=== PATIENT | female | born 2000 | race Caucasian/White ===

== ENCOUNTER 2018-12-29 21:27 | Inpatient (IN) ==
[2018-12-29] MEDS ORDERED: SODIUM CHLORIDE 0.9% 500 ML IV STA (21:58)
[2018-12-29] MEDS ORDERED: ONDANSETRON 4 MG/2 ML VIAL IV STA (21:58)
[2018-12-29 23:14] LABS: Basophils % 0.1 % (0.0-0.8); Eosinophils % 0.1 % (0.00-10.9); Hematocrit 35.9 VOL% (35.7-47.0); Immature Granulocytes % 0.4 %; Immature Granulocytes Absolute 0.04 #; Lymphocytes # 0.9 10*3/uL (1.4-4.0); Lymphocytes % 8.5 % (21.3-54.2); Mean Corpuscular HGB Conc 33.4 GM/DL (32-36); Mean Corpuscular Volume 88.9 FL (87-102); Mean Platelet Volume 11.1 FL (9.6-12.0); Monocytes % 3.4 % (1.7-12.7); Neutrophils % 87.5 % (38.7-73.9); Platelet Count 190 T/CUMM (130-400); Red Blood Count 4.04 MC/CUMM (3.8-5.5); Red Cell Distribution Width 12.7 % (9.3-17.3); White Blood Count 10.6 T/CUMM (4-12)
[2018-12-29] MEDS ORDERED: MEPERIDINE 25 MG/1 ML VIAL IV STA (23:19)
[2018-12-29 23:54] LABS: Albumin 3.6 G/DL (3.4-5.0); Bilirubin,Total 0.6 MG/DL (0.2-1.0); Calcium 9.1 MG/DL (8.5-10.1); Osmolality,Calculated 270.8 MOS/KG (273-304)
[2018-12-30 00:37] LABS: Barbiturates Screen,Urine Negative (Negative); Benzodiazepines Screen,Urine Negative (Negative); Cannabinoid Screen,Urine Positive (Negative); Opiate Screen,Urine Negative (Negative); Phencyclidine Screen,Urine Negative (Negative)
[2018-12-30 00:48] LABS: Apearance,Urine CLOUDY (Clear); Bacteria,Urine Many /HPF (Few); Bilirubin,Urine Negative (Negative); Blood, Urine Negative (Negative); Glucose,Urine (UA) Negative (Negative); Ketones,Urine Negative (Negative); Mucus,Urine Many /LPF (Occasional); Nitrite,Urine Positive (Negative); Protein,Urine 30 MG/DL; RBC,Urine 1 /HPF (0-4); Squamous Epithelial Cell,Urine Occasional /HPF (0-10); Urine Color Amber (Yellow); Urine Specific Gravity 1.027 (1.001-1.035); Urine Urobilinogen < 2.0 EU/DL (0.2-1.0); WBC,Urine 2 /HPF (0-6)
[2018-12-30] MEDS ORDERED: SODIUM CHLORIDE 0.9% 1,000 ML IV SCH (02:38)
[2018-12-30] MEDS ORDERED: ACETAMINOPHEN 325 MG TABLET PO PRN (02:38)
[2018-12-30] MEDS ORDERED: ONDANSETRON 4 MG/2 ML VIAL IV PRN (02:38)
[2018-12-30] MEDS ORDERED: SODIUM CHLORIDE 0.9% 100 ML IV ONE (02:52)
[2018-12-30] MEDS ORDERED: PIPERACILLIN/TAZOBACTAM 3,375 MG VIAL IV ONE (02:52)
[2018-12-30] MEDS: PIPERACILLIN/TAZOBACTAM 3,375 MG in SODIUM CHLORIDE 0.9% 100 ML IV SCH ×3 (03:30→18:02)
[2018-12-30] MEDS: LACTATED RINGERS 1,000 ML IV SCH ×3 (03:30→18:03)
[2018-12-30] MEDS: MEPERIDINE 25 MG/1 ML VIAL IV PRN ×5 (03:37→21:54)
[2018-12-30] MEDS: ONDANSETRON 4 MG/2 ML VIAL IV PRN ×5 (03:38→21:47)
[2018-12-30 05:20] LABS: Basophils % 0.1 % (0.0-0.8); Eosinophils % 0.1 % (0.00-10.9); Hematocrit 33.1 VOL% (35.7-47.0); Immature Granulocytes % 0.4 %; Immature Granulocytes Absolute 0.03 #; Lymphocytes # 1.2 10*3/uL (1.4-4.0); Lymphocytes % 15.4 % (21.3-54.2); Mean Corpuscular HGB Conc 33.2 GM/DL (32-36); Mean Corpuscular Volume 90.2 FL (87-102); Mean Platelet Volume 11.2 FL (9.6-12.0); Monocytes % 4.7 % (1.7-12.7); Neutrophils % 79.3 % (38.7-73.9); Platelet Count 156 T/CUMM (130-400); Red Blood Count 3.67 MC/CUMM (3.8-5.5); Red Cell Distribution Width 12.6 % (9.3-17.3); White Blood Count 7.9 T/CUMM (4-12)
[2018-12-30 05:48] LABS: Albumin 2.9 G/DL (3.4-5.0); Bilirubin,Total 0.6 MG/DL (0.2-1.0); Calcium 8.4 MG/DL (8.5-10.1); Osmolality,Calculated 270.8 MOS/KG (273-304); Total Protein 6.2 G/DL (6.4-8.3)
[2018-12-31] MEDS: ONDANSETRON 4 MG/2 ML VIAL IV PRN ×2 (01:52→11:49)
[2018-12-31] MEDS: MEPERIDINE 25 MG/1 ML VIAL IV PRN ×4 (01:57→14:16)
[2018-12-31] MEDS: LACTATED RINGERS 1,000 ML IV SCH ×2 (02:06→11:08)
[2018-12-31] MEDS: PIPERACILLIN/TAZOBACTAM 3,375 MG in SODIUM CHLORIDE 0.9% 100 ML IV SCH ×2 (03:00→11:09)
[2018-12-31 06:06] LABS: Basophils % 0.2 % (0.0-0.8); Eosinophils # 0.1 10*3/uL (0.0-0.87); Eosinophils % 1.1 % (0.00-10.9); Hematocrit 31.6 VOL% (35.7-47.0); Hemoglobin 10.3 GM/DL (12.0-16.0); Immature Granulocytes % 0.4 %; Immature Granulocytes Absolute 0.02 #; Lymphocytes # 1.9 10*3/uL (1.4-4.0); Lymphocytes % 33.2 % (21.3-54.2); Mean Corpuscular HGB Conc 32.6 GM/DL (32-36); Mean Corpuscular Volume 90.5 FL (87-102); Mean Platelet Volume 10.7 FL (9.6-12.0); Neutrophils % 56.1 % (38.7-73.9); Platelet Count 162 T/CUMM (130-400); Red Blood Count 3.49 MC/CUMM (3.8-5.5); Red Cell Distribution Width 12.9 % (9.3-17.3); White Blood Count 5.6 T/CUMM (4-12)
[2018-12-31] MEDS ORDERED: BUPIVACAINE MPF 0.25% /EPI 30 ML VIAL ONE (09:15)
[2018-12-31] MEDS ORDERED: TISSUE ADHESIVE 1 EACH APPLICATOR TOP ONE (09:15)
[2018-12-31] MEDS ORDERED: LIDOCAINE 1%/EPI INJ 20 ML VIAL ONE (09:16)
[2018-12-31] MEDS ORDERED: MEPERIDINE 25 MG/1 ML VIAL ONE (10:27)
[2018-12-31] MEDS ORDERED: PROPOFOL 200 MG/20 ML VIAL IV ONE (10:28)
[2018-12-31] MEDS ORDERED: PHENYLEPHRINE 1 MG/10 ML SYRINGE IV ONE (10:29)
[2018-12-31] MEDS ORDERED: ACETAMINOPHEN 1,000 MG/100 ML VIAL IV ONE (10:29)
[2018-12-31] MEDS ORDERED: SUCCINYLCHOLINE 200 MG/10 ML VIAL ONE (10:29)
[2018-12-31] MEDS ORDERED: SEVOFLURANE 1 UNIT/15 MINUTE INH ONE (10:29)
[2018-12-31] MEDS ORDERED: ONDANSETRON 4 MG/2 ML VIAL ONE (10:29)
[2018-12-31] MEDS ORDERED: fentaNYL 100 MCG/2 ML VIAL ONE (10:29)
[2018-12-31] MEDS ORDERED: ROCURONIUM 100 MG/10 ML VIAL IV ONE (10:29)
[2018-12-31 15:28] VITALS: BP 127/65
== END 2018-12-31 16:10 | disposition home or self-care (01) | DRG 819 ==
LOC: N.ED 21:27 → N.EDINP 12-30 00:09 → N.OB 12-30 01:50
PROVIDERS: ADMIT Obstetrics & Gynecology; ATTEND Obstetrics & Gynecology
PROC: LAPCHOL (2018-12-31 09:12)

== ENCOUNTER 2021-04-02 07:02 | Inpatient (IN) ==
[2021-04-02] MEDS ORDERED: LACTATED RINGERS 1,000 ML IV SCH ×2 (08:00→14:00)
[2021-04-02] MEDS ORDERED: OXYTOCIN/LR 20 UNIT/1,000 ML BAG IV SCH (08:00)
[2021-04-02 08:07] LABS: Basophils % 0.2 % (0.0-0.8); Eosinophils # 0.1 10*3/uL (0.0-0.87); Hematocrit 32.5 VOL% (35.7-47.0); Hemoglobin 10.6 GM/DL (12.0-16.0); Immature Granulocytes % 0.4 %; Immature Granulocytes Absolute 0.04 #; Lymphocytes # 2.6 10*3/uL (1.4-4.0); Lymphocytes % 24.7 % (21.3-54.2); Mean Corpuscular HGB Conc 32.6 GM/DL (32-36); Mean Corpuscular Volume 89.8 FL (87-102); Mean Platelet Volume 11.3 FL (9.6-12.0); Monocytes % 5.4 % (1.7-12.7); Neutrophils % 68.3 % (38.7-73.9); Platelet Count 199 T/CUMM (130-400); Red Blood Count 3.62 MC/CUMM (3.8-5.5); White Blood Count 10.4 T/CUMM (4-12)
[2021-04-02] MEDS ORDERED: AMPICILLIN INJ 2,000 MG in SODIUM CHLORIDE 0.9% 100 ML IV ONE (08:13)
[2021-04-02 08:21] LABS: INR 0.9; PT Patient Result 10.1 SECS (10.5-12.0); Partial Thromboplastin Time 24.4 SECS (23.9-33.8)
[2021-04-02 08:25] LABS: Alanine Aminotransferase 12 U/L (13-56); Albumin 2.8 G/DL (3.4-5.0); Alkaline Phosphatase 105 U/L (45-117); Aspartate Amino Transferase 11 U/L (0-37); Bilirubin,Direct < 0.050 MG/DL (0.0-0.20); Bilirubin,Total < 0.39 MG/DL (0.20-1.00); Blood Urea Nitrogen 6 MG/DL (7-18); Calcium 8.6 MG/DL (8.5-10.1); Carbon Dioxide 24 MMOL/L (21-32); Estimated Glom Filtration Rate 169 ML/MIN; Glucose 93 MG/DL (74-106); Osmolality,Calculated 267.1 MOS/KG (273-304); Potassium 3.3 MMOL/L (3.5-5.1); Sodium 135 MMOL/L (136-145); Total Protein 6.8 G/DL (6.4-8.2); Uric Acid 4.3 MG/DL (2.6-6.0)
[2021-04-02 08:27] LABS: Hypochromasia 1+; Lymphocytes 24 % (20-55); Microcytosis 1+; Platelet Estimate Adequate; Segmented Neutrophils 71 % (50-85); Total Cells Counted 100
[2021-04-02 08:37] LABS: Bilirubin,Urine Negative (Negative); Blood, Urine Negative (Negative); Glucose,Urine (UA) Negative (Negative); Ketones,Urine Negative (Negative); Mucus,Urine Occasional /LPF (Occasional); Nitrite,Urine Positive (Negative); Protein,Urine Negative; RBC,Urine 3 /HPF (0-4); Squamous Epithelial Cell,Urine Few /HPF (0-10); Urine Appearance Slightly Hazy (Clear); Urine Color Yellow (Yellow); Urine Specific Gravity 1.013 (1.001-1.035); Urine Urobilinogen < 2.0 EU/DL (0.2-1.0)
[2021-04-02 08:45] LABS: Protein/Creatinine Ratio,Urine 0.1 RATIO
[2021-04-02] MEDS: AMPICILLIN INJ 1,000 MG in SODIUM CHLORIDE 0.9% 100 ML IV SCH ×3 (12:27→20:42)
[2021-04-02] MEDS ORDERED: ePHEDrine 50 MG/ML VIAL IV PRN (13:32)
[2021-04-02] MEDS ORDERED: FAMOTIDINE 20 MG/2 ML VIAL IV ONE (13:32)
[2021-04-02] MEDS ORDERED: CITRIC ACID/SODIUM CITRATE 30 ML UDCUP PO ONE (13:32)
[2021-04-02] MEDS ORDERED: LACTATED RINGERS 1,000 ML IV ONE (13:32)
[2021-04-02] MEDS ORDERED: diphenhydrAMINE 50 MG/1 ML VIAL IV PRN ×2 (13:36)
[2021-04-02] MEDS ORDERED: NALOXONE 0.4 MG/ML VIAL IV PRN (13:36)
[2021-04-02] MEDS ORDERED: PROMETHAZINE 25 MG/1 ML VIAL IM ONE (13:36)
[2021-04-02] MEDS ORDERED: hydrOXYzine HCL 25 MG/1 ML VIAL IM PRN (13:36)
[2021-04-02] MEDS: fentaNYL 2 MCG/ROPIV 0.2% EPID 100 ML EPIDURAL SCH ×2 (14:12→22:11)
[2021-04-02 15:30] LABS: Bilirubin,Urine Negative (Negative); Blood, Urine Negative (Negative); Glucose,Urine (UA) Negative (Negative); Ketones,Urine 20 mg/dL (Negative); Mucus,Urine Occasional /LPF (Occasional); Nitrite,Urine Negative (Negative); Protein,Urine Negative; RBC,Urine <1 /HPF (0-4); Squamous Epithelial Cell,Urine Occasional /HPF (0-10); Urine Appearance CLEAR (Clear); Urine Color Yellow (Yellow); Urine Specific Gravity 1.025 (1.001-1.035); Urine Urobilinogen < 2.0 EU/DL (0.2-1.0)
[2021-04-02] MEDS: ONDANSETRON 4 MG/2 ML VIAL IV PRN ×2 (17:33→23:37)
[2021-04-02] MEDS ORDERED: miSOPROStoL 200 MCG TABLET ONE (22:41)
[2021-04-02] MEDS ORDERED: OXYTOCIN/LR 20 UNIT/1,000 ML BAG IV ONE (22:41)
[2021-04-02] MEDS ORDERED: TRANEXAMIC ACID 1,000 MG/10 ML VIAL ONE (22:41)
[2021-04-02] MEDS ORDERED: METHYLERGONOVINE 0.2 MG/1 ML AMP ONE (22:41)
[2021-04-02] MEDS ORDERED: CARBOPROST TROMETHAMINE 250 MCG/ML AMP IM ONE (22:42)
[2021-04-02] MEDS ORDERED: SODIUM CHLORIDE 0.9% 0 ML IV ONE (22:42)
[2021-04-03] MEDS: AMPICILLIN INJ 1,000 MG in SODIUM CHLORIDE 0.9% 100 ML IV SCH (00:15)
[2021-04-03] MEDS ORDERED: OXYTOCIN/LR 20 UNIT/1,000 ML BAG IV ONE ×2 (00:43→04:05)
[2021-04-03 00:58] LABS: Cord Arterial Blood HCO3 20.7 MMOL/L
[2021-04-03 01:01] LABS: Cord Venous Blood HCO3 22.5 MMOL/L; Cord Venous Blood PCO2 36.8 MMHG; Cord Venous Blood PO2 36.1
[2021-04-03] MEDS ORDERED: BENZOCAINE 20%/MENTHOL 0.5% SPRAY 56 GM CAN TOP PRN (03:53)
[2021-04-03] MEDS ORDERED: ONDANSETRON 4 MG/2 ML VIAL IV PRN (03:53)
[2021-04-03] MEDS ORDERED: LANOLIN 50% CREAM 0.3 OZ TUBE TOP PRN (03:53)
[2021-04-03] MEDS ORDERED: WITCH HAZEL PADS 100/JAR TOP PRN (03:53)
[2021-04-03] MEDS ORDERED: RHO(D) IMMUNE GLOBULIN 300 MCG SYRINGE IM ONE (03:53)
[2021-04-03] MEDS ORDERED: MEASLES/MUMPS/RUBELLA VACCINE 0.5 ML VIAL SUBCUT ONE (03:53)
[2021-04-03] MEDS ORDERED: oxyCODONE/ACETAMINOPHEN 5-325 MG TABLET PO PRN (03:53)
[2021-04-03] MEDS ORDERED: DIPH/TET/ACEL PERT BOOSTER VACCINE 0.5 ML VIAL IM ONE (03:53)
[2021-04-03] MEDS ORDERED: HYDROCORTISONE 2.5% RECTAL CREAM 30 GM TUBE TOP PRN (03:53)
[2021-04-03] MEDS ORDERED: ACETAMINOPHEN 325 MG TABLET PO PRN (03:53)
[2021-04-03] MEDS ORDERED: BISACODYL 10 MG SUPP RECTAL PRN (03:53)
[2021-04-03] MEDS: oxyCODONE/ACETAMINOPHEN 5-325 MG TABLET PO PRN ×2 (04:58→20:46)
[2021-04-03 05:45] LABS: Basophils % 0.1 % (0.0-0.8); Eosinophils # 0.1 10*3/uL (0.0-0.87); Eosinophils % 0.5 % (0.00-10.9); Hematocrit 29.1 VOL% (35.7-47.0); Hemoglobin 9.6 GM/DL (12.0-16.0); Immature Granulocytes % 0.6 %; Immature Granulocytes Absolute 0.08 #; Lymphocytes # 2.8 10*3/uL (1.4-4.0); Lymphocytes % 19.6 % (21.3-54.2); Mean Corpuscular Volume 90.7 FL (87-102); Mean Platelet Volume 11.6 FL (9.6-12.0); Neutrophils % 74.2 % (38.7-73.9); Platelet Count 180 T/CUMM (130-400); Red Blood Count 3.21 MC/CUMM (3.8-5.5); Red Cell Distribution Width 12.8 % (9.3-17.3); White Blood Count 14.2 T/CUMM (4-12)
[2021-04-03] MEDS ORDERED: OXYTOCIN/LR 20 UNIT/1,000 ML BAG IV SCH (06:00)
[2021-04-03] MEDS: POTASSIUM CHLORIDE 20 MEQ TABLET PO PRN ×3 (09:42→13:39)
[2021-04-03] MEDS: DOCUSATE SODIUM 100 MG CAPSULE PO SCH ×2 (09:43→20:46)
[2021-04-03] MEDS: IBUPROFEN 800 MG TABLET PO PRN ×2 (09:49→16:04)
[2021-04-04] MEDS ORDERED: SIMETHICONE CHEW 80 MG TABLET PO PRN (03:35)
[2021-04-04] MEDS: DOCUSATE SODIUM 100 MG CAPSULE PO SCH (08:42)
[2021-04-04 11:35] VITALS: BP 159/80
== END 2021-04-04 14:32 | disposition home or self-care (01) | DRG 807 ==
LOC: N.LD 07:02 → N.OB 04-03 04:19
PROVIDERS: ADMIT Obstetrics & Gynecology; ATTEND Obstetrics & Gynecology